=== PATIENT | male | born 1980 | race Hispanic/Latino ===

== ENCOUNTER 2019-02-26 12:49 | Inpatient (IN) | payer SELFPAY ==
[~2019-02-26 12:49] MED LIST: Heparin 1,000 UNITS/ML VIAL ONE
[2019-02-26] MEDS ORDERED: Sodium Chloride 0.9% 100 ML ONE (13:31)
[2019-02-26] MEDS ORDERED: Cefepime 2 GM VIAL ONE (13:31)
--- NOTE | 2019-02-26 13:46 | RAD ---
XR Foot Rt 3 View STANDARD HISTORY: Ulcer with cellulitis first toe FINDINGS: No fracture or dislocation is identified. No bony destruction or periosteal reaction is identified. T here is a tiny plantar calcaneal spur. There is a soft tissue defect involving the soft tissues the plantar aspect of the great toe.
[2019-02-26 14:26] LABS: #Eosinphils 0.1 thou/uL (0.0-0.7); #Lymphocytes 1.6 thou/uL (1.20-3.40); #Neutrophils 13.2 thou/uL (1.40-6.50); %Basophils 0.2 % (0.0-1.0); %Eosinophils 0.7 % (0.0-10.0); %Lymphocytes 9.8 % (21.0-51.0); %Monocytes 6.5 % (0.0-10.0); %Neutrophils 82.9 % (42.0-75.0); Hemoglobin 16.9 g/dL (14.0-18.0); Mean Corpuscular HGB CONC 33.9 g/dL (32.0-36.0); Mean Corpuscular Hemoglobin 27.5 pg (27.0-31.0); Mean Platelet Volume 9.2 fL (7.4-10.4); Platelet Count 188 thou/uL (130-400); Red Blood Cell (RBC) Count 6.16 mill/uL (4.70-6.10); White Blood Cell (WBC) Count 15.9 thou/uL (4.8-10.8)
[2019-02-26 14:34] LABS: Chloride 103 mmol/L (98-107); Potassium 4.6 mmol/L (3.5-5.1); Sodium 134 mmol/L (136-145)
[2019-02-26 14:35] LABS: Calcium 9.1 mg/dL (7.8-10.44); Glucose 355 mg/dL (70-105)
[2019-02-26 14:37] LABS: Anion Gap 16 mmol/L (10-20); Bilirubin, Total 0.5 mg/dL (0.2-1.2); Carbon Dioxide 20 mmol/L (22-29)
[2019-02-26 14:38] LABS: Alkaline Phosphatase 140 U/L (40-110)
[2019-02-26 14:39] LABS: Calc. Creatinine Clearance 0 mL/min (70-130); Estimated GFR-MDRD 86
[2019-02-26 14:40] LABS: BUN (Urea Nitrogen) 12 mg/dL (8.9-20.6)
[2019-02-26 14:41] LABS: ALT (SGPT) 12 U/L (8-55); AST (SGOT) 17 U/L (5-34)
[2019-02-26 16:25] LABS: Lactic Acid 0.9 mmol/L (0.5-2.2)
[2019-02-26] MEDS ORDERED: Dextrose 5% in Water 1,000 ML IV PRN (16:31)
[2019-02-26] MEDS ORDERED: Ondansetron ODT 4 MG TAB PO PRN (16:31)
[2019-02-26] MEDS ORDERED: Ondansetron PF 4 MG/2 ML Vial IVP PRN (16:31)
[2019-02-26] MEDS ORDERED: HYDROcodone/Acetaminophen 5/325 mg Tablet PO PRN (16:31)
[2019-02-26] MEDS ORDERED: hydrALAZINE 20 MG/ML VIAL SLOW IVP PRN (16:31)
[2019-02-26] MEDS ORDERED: Dextrose 50% Abboject 50 ML SYRINGE SLOW IVP PRN (16:31)
[2019-02-26 16:58] LABS: Hemoglobin A1c 13.4 % (4.0-6.0)
[2019-02-26 17:18] LABS: ALT (SGPT) 10 U/L (8-55); AST (SGOT) 14 U/L (5-34); Albumin 3.3 g/dL (3.5-5.0); Alkaline Phosphatase 107 U/L (40-110); Anion Gap 11 mmol/L (10-20); BUN (Urea Nitrogen) 9 mg/dL (8.9-20.6); Bilirubin, Total 0.4 mg/dL (0.2-1.2); Calc. Creatinine Clearance 0 mL/min (70-130); Calcium 7.7 mg/dL (7.8-10.44); Carbon Dioxide 19 mmol/L (22-29); Chloride 107 mmol/L (98-107); Estimated GFR-MDRD Greater than 90; Globulin 3.2 g/dL (2.4-3.5); Glucose 261 mg/dL (70-105); Potassium 4.3 mmol/L (3.5-5.1); Protein, Total 6.5 g/dL (6.0-8.3); Sodium 133 mmol/L (136-145)
[2019-02-26] MEDS: Piperacillin/Tazobactam 3.375 GM in Sodium Chloride 0.9% 100 ML IVPB SCH (17:42)
[2019-02-26] MEDS: metFORMIN 500 MG TAB PO SCH (17:43)
[2019-02-26] MEDS: HumaLOG 300 UNITS/3 ML VIAL SC PRN (17:43)
--- NOTE | 2019-02-26 18:19 | HP ---
PRIMARY CARE PHYSICIAN: The patient currently does not have a primary care physician. CHIEF COMPLAINT: Redness and soreness on the first toe on the right foot. HISTORY OF PRESENT ILLNESS: Mr. Solis is a very pleasant 38-year-old gentleman, who has a history of diabetes mellitus. He says he has been diabetic that he knows of for at least 2 to 3 years. He says that about a year ago, he had a callus on his foot that cracked and since then it developed a crater. He had been treating it himself with silver gauze and cleaning it daily. However, in the last day he says he noticed it was becoming red and more sore when he walked on it and his noticed it and said that he should come into the hospital to get it checked out. She noticed that there was also redness on the foot as well and the patient says that his leg started to get sore on that same side and as a result, he came to the ER for evaluation. In the ER, he was noted to be mildly tachycardic and had a leukocytosis and for this reason, he is being admitted. The patient denies having any fever that he noticed at home. No nausea. No vomiting. No diarrhea. No other symptoms. He denies any trauma to the area. He also denies any polyuria, polydipsia, and no visual changes. REVIEW OF SYSTEMS: All systems were reviewed and are negative except for that mentioned in History of Present Illness. PAST MEDICAL HISTORY: Significant for diabetes mellitus for 2 to 3 years. PAST SURGICAL HISTORY: He has had an I and D in the suprapubic area, nasal surgery. ALLERGIES: TO MORPHINE, WHICH CAUSES A RASH AND CAUSES HIM TO FEEL LIKE HIS ARM IS BURNING. SOCIAL HISTORY: He is , but . He and his live apart. He admits to smoking about a half a pack of cigarettes a day for 23 years. Denies any alcohol or drug use. He has no children of his own. FAMILY HISTORY: Significant for diabetes in his father as well as cerebrovascular accident. CURRENT MEDICATIONS: Include metformin 500 mg twice a day, but he has not had this in months. PHYSICAL EXAMINATION: GENERAL: He is alert and oriented. He appears to be in no acute distress. He has morbid obesity with a weight of 154 kg. He is well developed, however. VITAL SIGNS: Blood pressure 159/107, heart rate 103, respiratory rate of 23, and temperature is 98.3. HEENT: He is atraumatic, normocephalic. Pupils are equal, round, and reactive to light. Extraocular muscles are intact. His sclerae are anicteric. Throat; no erythema, no exudates. NECK: No adenopathy. No bruits. LUNGS: Clear to auscultation. There are no wheezing, no rales, no rhonchi. CARDIOVASCULAR: He has a normal S1 and S2. No S3 or S4. His PMI is slightly laterally displaced and diffuse. ABDOMEN: Obese. It is soft, nontender, and nondistended. Positive for bowel sounds. No rebound. No guarding. No organomegaly. EXTREMITIES: There is no calf tenderness. No joint effusions. However, on the right foot, there is a fairly deep crater on the plantar aspect of the first toe and just lateral to that is a very thick callus and he does have erythema on the dorsum aspect of the foot. He does have 2+ dorsalis pedis pulses, which are palpable. NEUROLOGIC: His cranial nerves are intact and his muscle strength is grossly intact. SKIN AND INTEGUMENT: The skin changes as previously mentioned and he does have some rash around the ankle of mildly erythematous and plaque-like around both the right and left foot. LABORATORY DATA AND IMAGING: White blood cell count is 15.9, hemoglobin 16.9, hematocrit is 49.8, and platelet count is 188. Glucose is 369. He had an x-ray done, which showed some soft tissue defect involving the soft tissue, but otherwise no periosteal reaction was seen. ASSESSMENT AND PLAN: 1. This is a pleasant 38-year-old gentleman, who presents with a longstanding foot ulcer, which has become infected. He will be admitted for cellulitis of the foot, started on empiric IV antibiotics for broad coverage. He clinically has adequate circulation in that leg. However, we will go ahead and get an MRI of the lower extremity to rule out osteomyelitis and consult either Podiatry or General Surgery for further recommendations. He definitely will require some form of debridement of the callus. 2. Diabetes mellitus. We will check a hemoglobin A1c and start him on a sliding scale as well as metformin. 3. Elevated blood pressure. I suspect he has hypertension. We will go ahead and start him on an antihypertensive medication as he has had several readings in the ER, one of which would meet the criteria for going ahead and diagnosing him with hypertension as it was 184/105 initially. We will check his renal function and likely start him on a low dose of lisinopril and consider ID consult as well. Job ID: [id number]
[2019-02-26 18:29] VITALS: BMI 50.2
[2019-02-26] MEDS ORDERED: Vancomycin HCl 1 GM in Premix Bag 1 BAG IVPB SCH (21:00)
[2019-02-26] MEDS: Famotidine 20 MG TAB PO SCH (21:10)
[2019-02-26] MEDS: Acetaminophen 325 MG TAB PO PRN (21:42)
[2019-02-27] MEDS: Piperacillin/Tazobactam 3.375 GM in Sodium Chloride 0.9% 100 ML IVPB SCH ×4 (00:14→17:28)
[2019-02-27 05:53] LABS: #Eosinphils 0.2 thou/uL (0.0-0.7); #Lymphocytes 1.7 thou/uL (1.20-3.40); #Monocytes 1.2 thou/uL (0.11-0.59); #Neutrophils 9.4 thou/uL (1.40-6.50); %Basophils 0.1 % (0.0-1.0); %Eosinophils 1.4 % (0.0-10.0); %Lymphocytes 13.3 % (21.0-51.0); %Monocytes 9.3 % (0.0-10.0); %Neutrophils 75.9 % (42.0-75.0); Hemoglobin 14.4 g/dL (14.0-18.0); Mean Corpuscular HGB CONC 34.2 g/dL (32.0-36.0); Mean Corpuscular Hemoglobin 27.9 pg (27.0-31.0); Mean Corpuscular Volume 81.5 fL (78.0-98.0); Mean Platelet Volume 8.2 fL (7.4-10.4); Platelet Count 171 thou/uL (130-400); RBC Distribution Width 11.7 % (11.5-14.5); Red Blood Cell (RBC) Count 5.17 mill/uL (4.70-6.10); White Blood Cell (WBC) Count 12.4 thou/uL (4.8-10.8)
[2019-02-27 06:16] LABS: Anion Gap 12 mmol/L (10-20); BUN (Urea Nitrogen) 7 mg/dL (8.9-20.6); Calc. Creatinine Clearance 314 mL/min (70-130); Calcium 7.8 mg/dL (7.8-10.44); Carbon Dioxide 20 mmol/L (22-29); Chloride 107 mmol/L (98-107); Estimated GFR-MDRD Greater than 90; Glucose 218 mg/dL (70-105); Sodium 135 mmol/L (136-145)
[2019-02-27] MEDS: metFORMIN 500 MG TAB PO SCH ×2 (08:11→17:29)
[2019-02-27] MEDS: Famotidine 20 MG TAB PO SCH ×2 (08:11→21:18)
[2019-02-27] MEDS: Enoxaparin Sodium 40 MG/0.4 ML SYRINGE SC SCH (08:11)
[2019-02-27] MEDS: Acetaminophen 325 MG TAB PO PRN ×2 (12:17→21:25)
[2019-02-27 13:29] LABS: Vancomycin, Trough 14.7 ug/mL
--- NOTE | 2019-02-27 16:35 | CON ---
DATE OF CONSULTATION: 02/27/2019 REASON FOR CONSULTATION: Right first toe ulcer and cellulitis. HISTORY OF PRESENT ILLNESS: A 38-year-old, history of type 2 diabetes and obesity, whom I had seen many years ago because of a scrotal inflammatory process, who has had a callus at the bottom aspect of the right hallux distal phalanx for the past year. He removed the callus himself using a pair of scissors at home. Then, it developed into an ulcer, and then the inflammatory process supervened, and he came to the hospital. The plain films did not show any bone involvement. He did have neutrophilia, which was [id number] and had noticed drainage from the wound and some pain as well associated with swelling and erythema. He has been started on broad-spectrum coverage. He denies headaches. No visual symptoms, sore throat, odynophagia, or dysphagia. No cough, sputum production, or chest pain. No abdominal pain or diarrhea. No genitourinary symptoms. No neurological symptoms. PAST MEDICAL HISTORY: Type 2 diabetes, scrotal infection, abscess of penis, and obesity. SOCIAL HISTORY: He is unemployed at this time. He used to work on odd jobs. , but from his . He smokes one-half pack per day. He lives in [place]. No alcoholic beverage use or other drug use. ALLERGIES: MORPHINE. MEDICATIONS: He was not taking any medication, but now, he is on: 1. P.R.N. medications. 2. Glucophage. 3. Zofran. 4. Zosyn. 5. Vancomycin. PHYSICAL EXAMINATION: VITAL SIGNS: He has been afebrile. BP 130/80, pulse 90, respirations 18, O2 saturation 97%. GENERAL: Appears in no distress. A little bit diaphoretic. LYMPHATICS: No lymphadenopathy. SKIN: Shows the ulcer at the plantar aspect of the hallux distal phalanx skin site. The ulcer measures about 1.5 cm. It has a clean base. I was not able to probe any exposed bone by using a Q-tip. There is a little bit of undermining, but not much. There is a very thick callus surrounding the ulcer in the distal and lateral aspect. HEENT: Ocular movements are conjugate. Sclerae are white. Oral cavity is not remarkable. NECK: Supple. LUNGS: Symmetric, clear breath sounds. HEART: S1 and S2. Regular rate. No S3 or S4. ABDOMEN: Soft. Not distended or tender. No ascites. No bladder distention. EXTREMITIES: Moves extremities equally. Pulses are 1+ in dorsalis pedis and posterior tibialis. Popliteals are 2+. Cap refill is normal. NEUROLOGIC: Cognitive function is intact. LABORATORY DATA: White cell count is down to 12.4. Other elements of the CBC are essentially normal. Differential improving down to 75%. Chemistry with a creatinine 0.69. Liver profile, normal. Alkaline phosphatase 140, albumin 4.0. Vancomycin trough 14.7. Two sets of blood cultures are submitted, no growth thus far. ASSESSMENT: Obesity with type 2 diabetes, neuropathy, and a thick callus in the first toe volar aspect distal phalanx skin site with chronic ulceration and inflammatory changes. DISCUSSION: The patient does not have obvious bone destruction on plain films or exposed bone. Still, there might be some early osteomyelitis, and I think it is worthwhile to evaluate with MRI, so we would simplify management if negative. Switch him to Rocephin and vancomycin. Discontinue Zosyn. If MRI negative, then discharge on oral antimicrobial therapy. I do not think we are going to have any cultures from the toe. We would have to cover for gram-negatives with quinolone plus Augmentin in that case. If the MRI shows osteomyelitis, then we will have to consider IV antimicrobial therapy. Although, one could try oral combination for protracted periods of time as well. We will see what turns out. Job ID: [id number]
[2019-02-27] MEDS: HumaLOG 300 UNITS/3 ML VIAL SC PRN ×2 (17:37→21:18)
[2019-02-28] MEDS: Piperacillin/Tazobactam 3.375 GM in Sodium Chloride 0.9% 100 ML IVPB SCH ×3 (00:18→13:44)
[2019-02-28] MEDS: HumaLOG 300 UNITS/3 ML VIAL SC PRN ×3 (05:35→20:36)
--- NOTE | 2019-02-28 07:28 | PDOC.HOSPP ---
- Subjective Encounter Date: 02/27/19 Encounter Time: 17:30 Subjective: Patient seen and examined for diabetic foot infection. No fever or chills. Pain controlled. No new complaints. No overnight events - Objective Vital Signs & Weight: Vital Signs (12 hours) Temp Pulse Resp BP Pulse Ox 02/28/19 04:00 98.4 F 80 20 135/83 95 02/27/19 23:38 98.4 F 87 20 122/81 94 L 02/27/19 20:00 98.6 F 97 20 172/95 H 95 Weight Admit Weight 340 lb Weight 340 lb I&O: 02/27/19 02/28/19 03/01/19 06:59 06:59 06:59 Intake Total 600 1920 Balance 600 1920 Result Diagrams: 02/27/19 05:35 02/27/19 05:35 Additional Labs: Accuchecks 02/28/19 02/27/19 02/27/19 04:38 20:04 17:08 POC Glucose 208 H 356 H 241 H 02/27/19 11:35 POC Glucose 223 H Laboratory Tests 02/26/19 02/26/19 13:07 16:42 WBC 15.9 H Hemoglobin A1c 13.4 H Radiology Reviewed by me: Yes (foot XR - no Osteo) Hospitalist ROS - Review of Systems Respiratory: denies: cough, dry, shortness of breath, hemoptysis, SOB with excertion, pleuritic pain, sputum, wheezing, other Cardiovascular: denies: chest pain, palpitations, orthopnea, paroxysmal noc. dyspnea, edema, light headedness, other - Medication Medications: Active Medications Generic Name Dose Route Start Last Admin Trade Name Freq PRN Reason Stop Dose Admin Acetaminophen 650 mg 02/26/19 16:31 02/27/19 21:25 Tylenol PO 650 mg Q4H PRN Administration Headache/Fever/Mild Pain (1-3) Enoxaparin Sodium 40 mg 02/27/19 09:00 02/27/19 08:11 Lovenox SC 40 mg 0900 TRAMAINE Administration Famotidine 20 mg 02/26/19 21:00 02/27/19 21:18 Pepcid PO 20 mg BID TRAMAINE Administration Piperacillin Sod/Tazobactam 100 mls @ 200 mls/hr 02/26/19 18:00 02/28/19 05: 35 Sod 3.375 gm/ Sodium Chloride IVPB 100 mls Q6HR TRAMAINE Administration Vancomycin HCl 2 gm/ Sodium 500 mls @ 250 mls/hr 02/26/19 22:00 02/28/19 05: 35 Chloride IVPB 500 mls Q8HR TRAMAINE Administration Insulin Human Lispro 0 units 02/26/19 16:31 02/28/19 05:35 Humalog SC 4 unit .MODERATE SLIDING SC PRN Administration Moderate Correctional Scale Insulin Human Lispro 0 units 02/26/19 16:31 02/27/19 21:18 Humalog SC 5 unit .BEDTIME SLIDING SC PRN Administration Bedtime Correctional Scale Metformin HCl 500 mg 02/26/19 17:00 02/27/19 17:29 Glucophage PO 500 mg BID-WM TRAMAINE Administration - Exam General Appearance: NAD Neck: no JVD Heart: RRR, no gallops, no rubs, normal peripheral pulses Respiratory: no wheezes, no rales, no ronchi, normal chest expansion Gastrointestinal: soft, non-tender, non-distended, normal bowel sounds Extremities: no cyanosis, no clubbing Extremities - other findings: foot ulcer with improving erythema Neurological: no focal deficits, no new deficit Musculoskeletal: normal tone, normal strength Psychiatric: normal affect, normal behavior, A&O x 3 Hosp A/P - Plan DVT proph w/lovenox Sepsis due to infected diabetic foot ulcer with cellulitis (POA) Uncontrolled DM2 Morbid obesity BMI 50.2 Med noncompliance HTN PLAN: Cont Vanc/Zosyn Monitor Vanc level Cont Metformin (started on admission) Add NPH Patient counselled ID input appreciated MRI pending AM labs
[2019-02-28] MEDS: metFORMIN 500 MG TAB PO SCH ×2 (07:57→17:19)
[2019-02-28] MEDS: Famotidine 20 MG TAB PO SCH (07:58)
[2019-02-28] MEDS: Enoxaparin Sodium 40 MG/0.4 ML SYRINGE SC SCH (07:58)
[2019-02-28] MEDS ORDERED: NPH, Human Insulin Isophane 300 UNIT/3 ML VIAL SC SCH (09:00)
[2019-02-28] MEDS ORDERED: Magnevist 469MG/ML 20 ML VIAL ONE (10:48)
--- NOTE | 2019-02-28 12:18 | MRI ---
EXAM: MRI right forefoot with and without IV contrast PROVIDED CLINICAL HISTORY: Ulcer COMPARISON: None FINDINGS: There is cutaneous irregularity at the plantar aspect of the first digit, presumably reflecting the p rovided clinical history of ulcer. There is diminished signal intensity on T1-weighted sequences and increased signal intensity on fluid sensitive sequences involving the great toe distal phalanx. T here is corresponding contrast enhancement. There is patchy increased signal intensity on fluid sensitive sequences within the great toe proximal phalanx, without corresponding T1 signal alteration . There is associated contrast enhancement. There is no evidence for regional joint effusion. There is no evidence for regional tenosynovial flui d. There is extensive signal alteration within the regional intrinsic foot musculature, typical for diab etic patients. There is conspicuous fluid signal intensity within the subcutaneous adipose layer at the dorsum of the foot, without significant associated contrast enhancement presumably reflecting vince ma. There is no evidence for a focal fluid collection to suggest abscess. The dorsal extensor and plantar flexor tendons demonstrate an intact MR appearance. IMPRESSION: 1. Signal changes within the great toe distal phalanx compatible with osteomyelitis. 2. Signal changes within the great toe proximal phalanx at the reflect reactive osteitis or early ost eomyelitis.
--- NOTE | 2019-02-28 12:57 | PRG ---
DATE OF SERVICE: 02/28/2019 SUBJECTIVE: The patient with no significant changes in status. No respiratory symptoms or abdominal pain. No diarrhea. Voiding without difficulty. OBJECTIVE: VITAL SIGNS: He has been afebrile. Other vital signs are unremarkable. No changes in the physical exam. LABORATORY DATA: White cell count of 12.4 from yesterday, hemoglobin 14, and platelets 171. Chemistry with a creatinine 0.69 from yesterday as well. Blood cultures, no growth thus far. MRI showed osteomyelitis/osteitis of the hallux distal in proximal phalanx. ASSESSMENT AND DISCUSSION: Type 2 diabetes, neuropathy, and chronic ulcer right hallux with evidence of osteomyelitis. We will switch him to Rocephin and vancomycin. Plan to discharge him on daptomycin and Rocephin for outpatient probably administration in the Oncology area, peripherally inserted central catheter line placement. Treat for 4 to 6 weeks and then conversion to oral antimicrobial therapy. Offloading and wound care. Job ID: [id number]
[2019-02-28 13:16] LABS: Vancomycin, Trough 18.8 ug/mL
[2019-02-28] MEDS: cefTRIAXone\\ROCEPHIN 2 GM in Sodium Chloride 0.9% 100 ML IVPB SCH (13:54)
[2019-02-28] MEDS ORDERED: ALPRAZolam 0.25 MG TAB PO PRN (14:16)
--- NOTE | 2019-02-28 17:14 | PDOC.HOSPP ---
- Subjective Encounter Date: 02/28/19 Encounter Time: 13:00 Subjective: Patient seen and examined for Osteomyelitis. No fever. No new complaints. No overnight events - Objective Vital Signs & Weight: Vital Signs (12 hours) Temp Pulse Resp BP Pulse Ox 02/28/19 15:51 98.4 F 85 17 140/86 96 02/28/19 08:00 97 02/28/19 07:38 98 F 84 17 142/87 H 97 Weight Admit Weight 340 lb Weight 340 lb I&O: 02/27/19 02/28/19 03/01/19 06:59 06:59 06:59 Intake Total 600 1920 Balance 600 1920 Result Diagrams: 02/27/19 05:35 02/27/19 05:35 Additional Labs: Accuchecks 02/28/19 02/28/19 02/27/19 15:53 04:38 20:04 POC Glucose 277 H 208 H 356 H 02/27/19 17:08 POC Glucose 241 H Radiology Reviewed by me: Yes (MRI - toe osteomyelitis) Hospitalist ROS - Review of Systems Cardiovascular: denies: chest pain, palpitations, orthopnea, paroxysmal noc. dyspnea, edema, light headedness, other Gastrointestinal: denies: nausea, vomiting, abdominal pain, diarrhea, constipation, melena, hematochezia, other - Medication Medications: Active Medications Generic Name Dose Route Start Last Admin Trade Name Freq PRN Reason Stop Dose Admin Acetaminophen 650 mg 02/26/19 16:31 02/27/19 21:25 Tylenol PO 650 mg Q4H PRN Administration Headache/Fever/Mild Pain (1-3) Enoxaparin Sodium 40 mg 02/27/19 09:00 02/28/19 07:58 Lovenox SC 40 mg 0900 TRAMAINE Administration Famotidine 20 mg 02/26/19 21:00 02/28/19 07:58 Pepcid PO 20 mg BID TRAMAINE Administration Vancomycin HCl 2 gm/ Sodium 500 mls @ 250 mls/hr 02/26/19 22:00 02/28/19 05: 35 Chloride IVPB 500 mls Q8HR TRAAMINE Administration Ceftriaxone Sodium 2 gm/ 100 mls @ 200 mls/hr 02/28/19 13:00 02/28/19 13:54 Sodium Chloride IVPB 100 mls 1300 TRAMAINE Administration Insulin Human Lispro 0 units 02/26/19 16:31 01/19/20 05:35 Humalog SC 4 unit .MODERATE SLIDING SC PRN Administration Moderate Correctional Scale Insulin Human Lispro 0 units 02/26/19 16:31 02/27/19 21:18 Humalog SC 5 unit .BEDTIME SLIDING SC PRN Administration Bedtime Correctional Scale Metformin HCl 500 mg 02/26/19 17:00 02/28/19 07:57 Glucophage PO 500 mg BID-WM TRAMAINE Administration - Exam General Appearance: NAD Heart: RRR, no gallops Respiratory: no wheezes, no rales, no ronchi Gastrointestinal: non-tender, non-distended, normal bowel sounds Extremities: no cyanosis Hosp A/P - Plan DVT proph w/SCDs Sepsis due to infected diabetic foot ulcer with cellulitis/Toe osteomyelitis Uncontrolled DM2 Morbid obesity BMI 50.2 Med noncompliance HTN PLAN: Cont Vanc Zosyn dced On IV Ceftriaxone Monitor Vanc level Increase NPH to 15 units BID PICC line in AM Await outpt Atbx setup - stable for dc Cont wound care
[2019-02-28] MEDS: NPH, Human Insulin Isophane 300 UNIT/3 ML VIAL SC SCH (20:36)
[2019-03-01 05:18] LABS: Prothrombin Time 12.8 SEC (12.0-14.7)
[2019-03-01] MEDS: HumaLOG 300 UNITS/3 ML VIAL SC PRN ×3 (05:48→17:11)
[2019-03-01] MEDS: metFORMIN 500 MG TAB PO SCH ×2 (08:43→17:10)
[2019-03-01] MEDS: NPH, Human Insulin Isophane 300 UNIT/3 ML VIAL SC SCH ×2 (08:43→20:49)
[2019-03-01] MEDS ORDERED: NPH, Human Insulin Isophane 300 UNIT/3 ML VIAL SC SCH (09:45)
--- NOTE | 2019-03-01 11:58 | SPC ---
PICC PLACEMENT ULTRASOUND-GUIDED VENOUS ACCESS: (Peripherally inserted central catheter) DATE: 03/01/2019 HISTORY: 38-year-old male with osteomyelitis of right great toe requiring long-term IV antibiotics. TECHNIQUE: Catheter caliber: 5 [place] Catheter trim length:53 cm Catheter lumen number:single Catheter tip location:right atrium Vein accessed:left basilic Total fluoroscopy time: 0.5 min. Dose area product: 7085 mGy*cm^2 Signed, informed consent was obtained. A tourniquet was applied at the proximal aspect of the arm. Th e arm was prepped and draped in the usual sterile fashion. A 25-gauge needle was used to applied buffered lidocaine superficially. The vein was punctured with a 21-gauge micropuncture needle under u ltrasound guidance. A 0.018 inch guidewire was advanced through the micropuncture needle and into the vein. Under fluoroscopic guidance, the guidewire was advanced to the superior vena cava. The PICC was flushed and trimmed to the appropriate length. The micropuncture needle was exchanged over the guidewire for a 5 [place] peel-away dilator sheath. The dilator was exchanged over the guidewire for t he PICC, which was then further advanced under fluoroscopy. The sheath and guidewire were removed. The PICC was flushed again and secured in place at the arm after adjustment of tip position. The gary ent tolerated the procedure well. There was no complication. IMPRESSION: Successful placement of PICC (peripherally inserted central catheter).
[2019-03-01] MEDS: cefTRIAXone\\ROCEPHIN 2 GM in Sodium Chloride 0.9% 100 ML IVPB SCH (13:23)
[2019-03-02] MEDS: Acetaminophen 325 MG TAB PO PRN (05:43)
--- NOTE | 2019-03-02 06:30 | PDOC.HOSPP ---
- Subjective Encounter Date: 03/01/19 Encounter Time: 10:00 Subjective: Patient seen and examined for diabetic foot infection. No new complaints. No overnight events - Objective Vital Signs & Weight: Vital Signs (12 hours) Temp Pulse Resp BP BP Pulse Ox 03/02/19 03:00 98.3 F 83 17 145/82 H 100 03/01/19 23:00 98.3 F 82 18 148/83 H 99 03/01/19 20:00 99 03/01/19 19:00 98.3 F 82 18 148/83 H 99 Weight Admit Weight 340 lb Weight 340 lb I&O: 02/28/19 03/01/19 03/02/19 06:59 06:59 06:59 Intake Total 1919 1480 Balance 1919 1480 Result Diagrams: 02/27/19 05:35 02/27/19 05:35 Additional Labs: Accuchecks 03/02/19 03/01/19 03/01/19 05:50 19:37 16:46 POC Glucose 158 H 242 H 235 H 03/01/19 11:04 POC Glucose 189 H Hospitalist ROS - Review of Systems Cardiovascular: denies: chest pain, palpitations, orthopnea, paroxysmal noc. dyspnea, edema, light headedness, other Gastrointestinal: denies: nausea, vomiting, abdominal pain, diarrhea, constipation, melena, hematochezia, other - Medication Medications: Active Medications Generic Name Dose Route Start Last Admin Trade Name Freq PRN Reason Stop Dose Admin Acetaminophen 650 mg 02/26/19 16:31 03/02/19 05:43 Tylenol PO 650 mg Q4H PRN Administration Headache/Fever/Mild Pain (1-3) Vancomycin HCl 2 gm/ Sodium 500 mls @ 250 mls/hr 02/26/19 22:00 03/02/19 05: 36 Chloride IVPB 500 mls Q8HR TRAMAINE Administration Ceftriaxone Sodium 2 gm/ 100 mls @ 200 mls/hr 02/28/19 13:00 03/01/19 13:23 Sodium Chloride IVPB 100 mls 1300 TRAMAINE Administration Insulin Human Lispro 0 units 02/26/19 16:31 03/01/19 17:11 Humalog SC 4 unit .MODERATE SLIDING SC PRN Administration Moderate Correctional Scale Insulin Human Lispro 0 units 02/26/19 16:31 01/19/20 20:36 Humalog SC 4 unit .BEDTIME SLIDING SC PRN Administration Bedtime Correctional Scale Insulin Human NPH 20 unit 03/01/19 21:00 03/01/19 20:49 Humulin N SC 20 units BID TRAMAINE Administration Metformin HCl 500 mg 02/26/19 17:00 03/01/19 17:10 Glucophage PO 500 mg BID-WM TRAMAINE Administration - Exam General Appearance: NAD Heart: RRR, no gallops Respiratory: no wheezes, no rales, no ronchi Gastrointestinal: soft, non-tender, non-distended, normal bowel sounds Extremities: no cyanosis, no clubbing Hosp A/P - Plan DVT proph w/SCDs Sepsis due to infected diabetic foot ulcer with cellulitis/Toe osteomyelitis Uncontrolled DM2 Morbid obesity BMI 50.2 Med noncompliance HTN PLAN: Cont Vanc/Ceftriaxone Monitor Vanc level Increase NPH to 20 units BID s/p PICC line Await outpt Atbx setup - stable for dc Outpt wound care
[2019-03-02 07:33] VITALS: BP 134/85; TEMP 98
[2019-03-02] MEDS: metFORMIN 500 MG TAB PO SCH (08:15)
[2019-03-02] MEDS: NPH, Human Insulin Isophane 300 UNIT/3 ML VIAL SC SCH (08:15)
[2019-03-02] MEDS ORDERED: Saccharomyces boulardii 250 MG CAP PO SCH (09:00)
[2019-03-02] MEDS: cefTRIAXone\\ROCEPHIN 2 GM in Sodium Chloride 0.9% 100 ML IVPB SCH (12:20)
[2019-03-02] MEDS: HumaLOG 300 UNITS/3 ML VIAL SC PRN (12:25)
[2019-03-02 13:39] LABS: Vancomycin, Trough 16.2 ug/mL
--- NOTE | 2019-03-02 22:03 | DIS ---
DATE OF ADMISSION: 02/26/2019 DATE OF DISCHARGE: 03/02/2019 DISCHARGE DISPOSITION: Home. FOLLOWUP: 1. Follow up with [facility] in 1 week. 2. Follow up with Infectious Disease, Dr. Abel, in 2 weeks. 3. Follow up with Podiatry as an outpatient. 4. Outpatient wound care. ALLERGIES: THE PATIENT IS ALLERGIC TO MORPHINE. DISCHARGE MEDICATIONS: 1. Novolin N 20 units b.i.d. 2. Metformin 500 mg b.i.d. 3. Ceftriaxone 2 g daily. 4. Daptomycin 500 mg daily. INPATIENT ACCOUNTS PAYABLE SUPERVISOR: Infectious Disease, Dr. Abel. SIGNIFICANT LABORATORY DATA: Hemoglobin A1c 13.4. Blood sugar on admission was 369, with WBC of 15.9. Blood cultures were negative. Lower extremity MRI was consistent with osteomyelitis involving the great toe distal phalanx and great toe proximal phalanx. BRIEF HOSPITAL COURSE: The patient is a 38-year-old male with diabetes mellitus type 2, currently not compliant with medications, presented to the emergency room with swelling around the right great toe. Please refer to the history and physical dated February 26, 2019, by Dr. Cortez for further details. The patient was admitted to the hospital with a diagnosis of diabetic foot infection. He was found to have uncontrolled diabetes with hemoglobin A1c of 13.4. He was started on NPH that has been gradually increased. He was found to have osteomyelitis involving the great toe. Outpatient antibiotics have been arranged per Dr. Abel' instruction. PICC line has been placed. He will follow up with wound care as an outpatient. He was advised to follow up with Podiatry as an outpatient. Plan of care was discussed with the patient in detail. He stated understanding. FINAL DIAGNOSES: 1. Sepsis due to infected diabetic foot ulcer with cellulitis as well as great toes osteomyelitis. 2. Uncontrolled diabetes mellitus type 2. 3. Morbid obesity with a BMI of 50.2. 4. Medication noncompliance. 5. Hypertension. 6. Hyponatremia. 7. Metabolic acidosis, resolved. Job ID: [id number]
== END 2019-03-02 13:43 | disposition home or self-care (01) | DRG 872 ==
LOC: ERS 12:49 → T4-A 14:46
PROVIDERS: ADMIT Internal Medicine; ATTEND Internal Medicine
PROC: 02H633Z Insertion of Infusion Device into Right Atrium, Percutaneous Approach (ICD-10-PCS; principal; 2019-03-01)
PROC: B548ZZA Ultrasonography of Superior Vena Cava, Guidance (ICD-10-PCS; 2019-03-01)
DX: A41.9 Sepsis, unspecified organism (principal); L03.115 Cellulitis of right lower limb; Z68.43 Body mass index [BMI] 50.0-59.9, adult; M86.8X7 Other osteomyelitis, ankle and foot; E11.69 Type 2 diabetes mellitus with other specified complication; Z88.8 Allergy status to other drugs, medicaments and biological substances; E11.621 Type 2 diabetes mellitus with foot ulcer; L97.519 Non-pressure chronic ulcer of other part of right foot with unspecified severity; E11.40 Type 2 diabetes mellitus with diabetic neuropathy, unspecified; E66.01 Morbid (severe) obesity due to excess calories; Z91.14 Patient's other noncompliance with medication regimen
CPT/HCPCS: 36415; 36416; 36569; 80048; 80053; 80202; 83036; 83605; 85025; 85610; 87040; 93005; 96360; 96365; 96366; 96367; A9579; C1751; J0692; J0696; J1644; J1650; J1815; J2543; J3370; J3490; J7050

== ENCOUNTER 2020-11-30 19:54 | Emergency (ER) | payer SELFPAY ==
[2020-11-30 21:06] LABS: #Basophils 0.1 thou/uL (0.0-0.2); #Eosinphils 0.4 thou/uL (0.0-0.7); #Lymphocytes 1.8 thou/uL (1.20-3.40); #Neutrophils 8.9 thou/uL (1.40-6.50); %Basophils 0.8 % (0.0-1.0); %Eosinophils 3.1 % (0.0-10.0); %Lymphocytes 14.6 % (21.0-51.0); %Monocytes 8.2 % (0.0-10.0); %Neutrophils 73.3 % (42.0-75.0); Hemoglobin 17.5 g/dL (14.0-18.0); Mean Corpuscular HGB CONC 34.5 g/dL (32.0-36.0); Mean Corpuscular Hemoglobin 29.4 pg (27.0-31.0); Mean Corpuscular Volume 85.3 fL (78.0-98.0); Mean Platelet Volume 8.2 fL (7.4-10.4); Platelet Count 200 thou/uL (130-400); RBC Distribution Width 12.2 % (11.5-14.5); Red Blood Cell (RBC) Count 5.93 mill/uL (4.70-6.10); White Blood Cell (WBC) Count 12.1 thou/uL (4.8-10.8)
[2020-11-30 21:21] LABS: ALT (SGPT) 21 U/L (8-55); AST (SGOT) 19 U/L (5-34); Albumin 4.2 g/dL (3.5-5.0); Alkaline Phosphatase 75 U/L (40-110); Anion Gap 17 mmol/L (10-20); BUN (Urea Nitrogen) 25 mg/dL (8.9-20.6); Bilirubin, Total 0.3 mg/dL (0.2-1.2); Calc. Creatinine Clearance 0 mL/min (70-130); Carbon Dioxide 17 mmol/L (22-29); Chloride 109 mmol/L (98-107); Globulin 3.1 g/dL (2.4-3.5); Glucose 141 mg/dL (70-105); Potassium 4.4 mmol/L (3.5-5.1); Protein, Total 7.3 g/dL (6.0-8.3); Sodium 139 mmol/L (136-145)
== END 2020-11-30 22:36 | disposition home or self-care (01) ==
LOC: ERS 19:54
DX: L03.031 Cellulitis of right toe (principal); S90.421A Blister (nonthermal), right great toe, initial encounter; D72.829 Elevated white blood cell count, unspecified; E11.9 Type 2 diabetes mellitus without complications; F17.210 Nicotine dependence, cigarettes, uncomplicated; R06.2 Wheezing; R00.0 Tachycardia, unspecified; Z79.899 Other long term (current) drug therapy; X58.XXXA Exposure to other specified factors, initial encounter
CPT/HCPCS: 36415; 80053; 83605; 85025; 86140

== ENCOUNTER 2021-10-07 19:42 | Emergency (ER) | payer SELFPAY ==
[2021-10-07 20:14] LABS: #Eosinphils 0.1 thou/uL (0.0-0.7); #Lymphocytes 1.5 thou/uL (1.20-3.40); #Monocytes 0.7 thou/uL (0.11-0.59); #Neutrophils 11.6 thou/uL (1.40-6.50); %Basophils 0.1 % (0.0-1.0); %Eosinophils 0.6 % (0.0-10.0); %Lymphocytes 10.9 % (21.0-51.0); %Monocytes 5.3 % (0.0-10.0); %Neutrophils 83.2 % (42.0-75.0); Hemoglobin 17.3 g/dL (14.0-18.0); Mean Corpuscular HGB CONC 35.5 g/dL (32.0-36.0); Mean Corpuscular Hemoglobin 30.2 pg (27.0-31.0); Mean Corpuscular Volume 84.9 fL (78.0-98.0); Mean Platelet Volume 8.3 fL (7.4-10.4); Platelet Count 200 thou/uL (130-400); Red Blood Cell (RBC) Count 5.74 mill/uL (4.70-6.10); White Blood Cell (WBC) Count 13.9 thou/uL (4.8-10.8)
[2021-10-07 20:35] LABS: ALT (SGPT) 20 U/L (8-55); AST (SGOT) 20 U/L (5-34); Alkaline Phosphatase 74 U/L (40-110); Anion Gap 21 mmol/L (10-20); BUN (Urea Nitrogen) 19 mg/dL (8.9-20.6); Bilirubin, Total 0.6 mg/dL (0.2-1.2); Calc. Creatinine Clearance 0 mL/min (70-130); Calcium 8.7 mg/dL (7.8-10.44); Carbon Dioxide 16 mmol/L (22-29); Chloride 105 mmol/L (98-107); Estimated GFR 65; Globulin 2.7 g/dL (2.4-3.5); Glucose 218 mg/dL (70-105); Potassium 4.5 mmol/L (3.5-5.1); Protein, Total 6.7 g/dL (6.0-8.3); Sodium 137 mmol/L (136-145)
[2021-10-07 20:55] LABS: Acetaminophen Less than 10.0 mcg/mL (10.0-30.0); Alcohol Less than 10 mg/dL (Less than 10); CK (CPK) 150 U/L (30-200); Magnesium 2.1 mg/dL (1.6-2.6); Salicylate Less than 8.0 mg/dL (15.0-30.0)
== END 2021-10-07 21:53 | disposition home or self-care (01) ==
LOC: ERS 19:42
DX: E86.0 Dehydration (principal); E11.9 Type 2 diabetes mellitus without complications; I10 Essential (primary) hypertension; F17.210 Nicotine dependence, cigarettes, uncomplicated; Z79.4 Long term (current) use of insulin; Z79.899 Other long term (current) drug therapy
CPT/HCPCS: 36415; 71045; 80053; 80307; 82550; 83690; 83735; 83880; 84443; 84484; 85025; 85379; 93005

== ENCOUNTER 2021-12-14 09:48 | Emergency (ER) | payer SELFPAY | END 2021-12-14 11:17 | disposition home or self-care (01) | LOC: ERS 09:48 | DX: L03.116 Cellulitis of left lower limb (principal); I10 Essential (primary) hypertension; E11.9 Type 2 diabetes mellitus without complications; Z79.84 Long term (current) use of oral hypoglycemic drugs; F17.210 Nicotine dependence, cigarettes, uncomplicated; Z79.899 Other long term (current) drug therapy | CPT/HCPCS: 99283 ==

== ENCOUNTER 2023-08-03 22:48 | Emergency (ER) | payer SELFPAY ==
[2023-08-03] MEDS ORDERED: Ciprofloxacin 500 MG TAB ONE (23:44)
[2023-08-03] MEDS ORDERED: Triple Antibiotic Oint 1 GM Packet ONE (23:44)
[2023-08-03] MEDS ORDERED: Boostrix 0.5 ML (Tdap) VIAL (>/=7 yrs of age) ONE (23:44)
== END 2023-08-04 01:01 | disposition home or self-care (01) ==
LOC: ERS 22:48
DX: S91.331A Puncture wound without foreign body, right foot, initial encounter (principal); I10 Essential (primary) hypertension; E11.9 Type 2 diabetes mellitus without complications; F17.210 Nicotine dependence, cigarettes, uncomplicated; W45.0XXA Nail entering through skin, initial encounter; Y93.89 Activity, other specified; Y92.096 Garden or yard of other non-institutional residence as the place of occurrence of the external cause; Z23 Encounter for immunization; Z79.84 Long term (current) use of oral hypoglycemic drugs; Z79.899 Other long term (current) drug therapy
CPT/HCPCS: 90471; 90715

== ENCOUNTER 2024-11-16 09:19 | Inpatient (IN) | payer SELFPAY ==
[2024-11-16 11:00] LABS: #Basophils 0.07 10x3/uL (0.0-0.2); #Eosinophils 0.30 10x3/uL (0.0-0.7); #Monocytes 0.53 10x3/uL (0.11-0.59); #Neutrophils 9.57 10x3/uL (1.40-6.50); %Basophils 0.6 % (0.0-1.0); %Eosinophils 2.5 % (0.0-10.0); %Lymphocytes 10.8 % (21.0-51.0); %Monocytes 4.4 % (0.0-10.0); %Neutrophils 80.2 % (42.0-75.0); Hematocrit 43.6 % (42.0-52.0); Hemoglobin 14.4 g/dL (14.0-18.0); Mean Corpuscular Hemoglobin 26.9 pg (27.0-31.0); Mean Corpuscular Volume 81.5 fL (78.0-98.0); Platelet Count 240 10x3/uL (130-400); Red Blood Cell (RBC) Count 5.35 mill/uL (4.70-6.10); White Blood Cell (WBC) Count 11.94 10x3/uL (4.8-10.8)
[2024-11-16 11:27] LABS: ALT (SGPT) 11 U/L (Less than 45); AST (SGOT) 19 U/L (11-34); Albumin 1.7 g/dL (3.1-4.5); Alkaline Phosphatase 97 U/L (40-110); Anion Gap 13 mmol/L (10-20); BUN (Urea Nitrogen) 24 mg/dL (8.9-20.6); Bilirubin, Total 0.1 mg/dL (0.3-1.2); Calc. Creatinine Clearance 0 mL/min (70-130); Calcium 8.0 mg/dL (7.8-10.44); Carbon Dioxide 16 mmol/L (22-29); Chloride 112 mmol/L (98-107); Globulin 3.9 g/dL (2.4-3.5); Glucose 296 mg/dL (70-105); Potassium 4.3 mmol/L (3.5-5.1); Sodium 137 mmol/L (136-145)
[2024-11-16 12:41] LABS: Actual Bicarbonate (HCO3v) 19.1 mEq/L (22-28); Base Excess -6.7 mEq/L (-2.0 to +3.0); Calcium, Ionized (venous) 1.10 mmol/L (1.16-1.32); Chloride (VBG) 110 mmol/L (98-106); Hematocrit-VBG 45 % (42.0-52.0); Hemoglobin (Hb) 15.2 g/dL (13.1-17.2); Potassium (VBG) 4.59 mmol/L (3.70-5.30); Sodium 139 mmol/L (133-146)
[2024-11-16 13:16] LABS: Bacteria/HPF 2+ HPF (None Seen); CAUTI Indications for Culture Dysuria,urgency,freq; Glucose, Urine (Dipstick) Greater than 1000 mg/dL (Negative); Leukocyte Negative Leu/uL (Negative); Protein, Urine (Dipstick) 600 mg/dL (Neg-Trace); Specific Gravity, Urine 1.025 (1.002-1.036)
[2024-11-16 13:21] LABS: Urine Culture Reflex No No
[2024-11-16] MEDS ORDERED: Senokot S 8.6-50 MG TAB PO PRN (14:33)
[2024-11-16] MEDS ORDERED: Ondansetron PF 4 MG/2 ML Vial IVP PRN (14:33)
[2024-11-16] MEDS ORDERED: Melatonin 3 MG TAB PO PRN (14:33)
[2024-11-16] MEDS ORDERED: Glucagon 1 MG/ML KIT IM PRN (16:06)
[2024-11-16] MEDS ORDERED: Dextrose 50% Abboject 50 ML SYRINGE SLOW IVP PRN (16:06)
[2024-11-16 19:18] LABS: Cocaine Metabolite Screen Negative (Negative); THC/Cannabinoid Screen Negative (Negative); Tricyclic Screen Negative (Negative)
[2024-11-16] MEDS: Sodium Bicarbonate Tab 325 MG TAB PO SCH (20:37)
[2024-11-16] MEDS: Heparin 5,000 UNITS/ML VIAL SC SCH (20:38)
[2024-11-17 05:01] LABS: #Basophils 0.06 10x3/uL (0.0-0.2); #Eosinophils 0.39 10x3/uL (0.0-0.7); #Monocytes 0.82 10x3/uL (0.11-0.59); #Neutrophils 7.41 10x3/uL (1.40-6.50); %Basophils 0.5 % (0.0-1.0); %Eosinophils 3.4 % (0.0-10.0); %Lymphocytes 22.5 % (21.0-51.0); %Monocytes 7.2 % (0.0-10.0); %Neutrophils 65.3 % (42.0-75.0); Hematocrit 38.0 % (42.0-52.0); Hemoglobin 12.2 g/dL (14.0-18.0); Mean Corpuscular Hemoglobin 27.1 pg (27.0-31.0); Mean Corpuscular Volume 84.3 fL (78.0-98.0); Platelet Count 207 10x3/uL (130-400); Red Blood Cell (RBC) Count 4.51 mill/uL (4.70-6.10); White Blood Cell (WBC) Count 11.36 10x3/uL (4.8-10.8)
[2024-11-17 05:11] LABS: Anion Gap 13 mmol/L (10-20); BUN (Urea Nitrogen) 25 mg/dL (8.9-20.6); Calc. Creatinine Clearance 119 mL/min (70-130); Calcium 7.8 mg/dL (7.8-10.44); Carbon Dioxide 16 mmol/L (22-29); Cardiac Risk 7.9 (Less than 4.5); Chloride 113 mmol/L (98-107); Cholesterol 301 mg/dl (< 200 Desired); Glucose 163 mg/dL (70-105); HDL Cholesterol 38 mg/dL (>60 Neg Risk); LDL Cholesterol, Calculated 199 mg/dL; Potassium 3.9 mmol/L (3.5-5.1); Sodium 138 mmol/L (136-145); Triglycerides 319 mg/dL (Less than 150)
[2024-11-17] MEDS: Acetaminophen 325 MG TAB PO PRN (08:32)
[2024-11-17] MEDS ORDERED: FLU (Fluarix Triv) 25-26 (6MOS UP)/PF 45 MCG/0.5 ML Syringe IM ONE (09:00)
[2024-11-17] MEDS ORDERED: Insulin NPH Human Isophane 100 UNITS/ML (10 ML VIAL) SC SCH (09:00)
[2024-11-17 12:48] VITALS: BP 170/90; TEMP 97.9
[2024-11-19 11:04] LABS: dsDNA IgG Antibody Less than 0.6 IU/mL (<10 Negative)
[2024-11-19 11:05] LABS: ANA Symphony (Qualitative) Negative (Negative); ANA Symphony (Quantitative) Less than 0.1 Ratio (< 0.7 Negative)
== END 2024-11-17 12:30 | disposition home or self-care (01) | DRG 683 ==
LOC: ERS 09:19 → 2NO 17:20 → OBSVTOIN 11-17 08:49
PROVIDERS: ADMIT Internal Medicine; ATTEND Family Medicine
PROC: 3E0234Z Introduction of Serum, Toxoid and Vaccine into Muscle, Percutaneous Approach (ICD-10-PCS; principal; 2024-11-17)
DX: N17.9 Acute kidney failure, unspecified (principal); E87.22 Chronic metabolic acidosis; Z68.43 Body mass index [BMI] 50.0-59.9, adult; R60.9 Edema, unspecified; E78.5 Hyperlipidemia, unspecified; Z88.5 Allergy status to narcotic agent; E66.01 Morbid (severe) obesity due to excess calories; Z71.3 Dietary counseling and surveillance; E11.22 Type 2 diabetes mellitus with diabetic chronic kidney disease; N18.30 Chronic kidney disease, stage 3 unspecified; Z23 Encounter for immunization; E88.09 Other disorders of plasma-protein metabolism, not elsewhere classified; E11.621 Type 2 diabetes mellitus with foot ulcer; L97.519 Non-pressure chronic ulcer of other part of right foot with unspecified severity; L97.529 Non-pressure chronic ulcer of other part of left foot with unspecified severity; Z98.890 Other specified postprocedural states; E11.65 Type 2 diabetes mellitus with hyperglycemia; I10 Essential (primary) hypertension; R80.9 Proteinuria, unspecified; F17.210 Nicotine dependence, cigarettes, uncomplicated
CPT/HCPCS: 36415; 36416; 71045; 76770; 80048; 80053; 80061; 80306; 81001; 82010; 82570; 82805; 83036; 83880; 84484; 85025; 86038; 86141; 86225; 93005; 97139; J1644; J1815; J7030